=== PATIENT | male | born 1995 | race Hispanic/Latino ===

== ENCOUNTER 2023-11-17 09:31 | Emergency (ER) | payer OTHER ==
[~2023-11-17] VITALS: Ht 167.6 cm; Wt 86.2 kg
[2023-11-17] MEDS: PREDNISONE 20 MG TABLET PO ONE (10:33)
[2023-11-17] MEDS: FAMOTIDINE 20MG TAB PO ONE (10:34)
[2023-11-17] MEDS: DIPHENHYDRAMINE HCL 25 MG CAPSULE PO ONE (10:34)
[2023-11-17 11:32] LABS: BASOPHILS # (AUTO) 0.07 K/uL (0.00-0.20); BASOPHILS % (AUTO) 0.8 % (0.0-5.0); EOSINOPHILS # (AUTO) 0.58 K/uL (0.00-0.70); EOSINOPHILS % (AUTO) 6.3 % (0.0-8.0); IMMATURE GRANULOCYTE ABSOLUTE 0.11 K/uL (0-1); LYMPHOCYTES # (AUTO) 1.8 K/uL (1.0-4.8); LYMPHOCYTES % (AUTO) 19.4 % (21.0-51.0); MEAN CORPUSCULAR HEMOGLOBIN 29.6 pg (27.0-33.0); MEAN CORPUSCULAR HGB CONC 34.3 g/dL (32.0-36.0); MEAN CORPUSCULAR VOLUME 86.1 fL (79-99); MONOCYTES # (AUTO) 1.2 K/uL (0.1-1.0); MONOCYTES % (AUTO) 13.3 % (3.0-13.0); NEUTROPHILS # (AUTO) 5.5 K/uL (1.8-7.7); PLATELET COUNT (AUTO) 239 K/uL (130-400); RED BLOOD CELL COUNT(AUTO) 5.34 MIL/uL (4.50-6.20); RED CELL DISTRIBUTION WIDTH 13.3 % (11.0-15.5); WHITE BLOOD COUNT (AUTO) 9.2 K/uL (4.8-10.8)
[2023-11-17 11:59] LABS: CREATININE 0.8 mg/dL (0.5-1.3); POTASSIUM 3.7 mmol/L (3.5-5.1)
[2023-11-17 12:04] LABS: ALBUMIN 3.8 g/dL (3.5-5.0); BILIRUBIN,TOTAL 1.1 mg/dL (0.2-1.0); TOTAL PROTEIN, SERUM 8.3 g/dL (6.0-8.3)
[2023-11-17] MEDS ORDERED: CLOB30CR5 TP (12:09)
[2023-11-17] MEDS ORDERED: PRED20TA3 PO (12:09)
[2023-11-17 12:45] VITALS: BP 141/88; PULSE 76; RESP 18; O2SAT 99
== END 2023-11-17 12:46 | disposition home or self-care (01) ==
LOC: EDH 09:31
DX: L24.5 Irritant contact dermatitis due to other chemical products (principal); Z79.52 Long term (current) use of systemic steroids
CPT/HCPCS: 99284; 80053; 85025; 36415; Q0163